=== PATIENT | female | born 1980 | race Caucasian/White ===

== ENCOUNTER 2018-05-24 13:31 | Outpatient (CLI) | payer OTHER | END 2018-05-24 14:03 | disposition home or self-care (01) | LOC: SONOGRAMA 13:31 | DX: O02.1 Missed abortion (principal) ==

== ENCOUNTER 2018-05-27 07:54 | Day surgery (SDC) | payer OTHER ==
[~2018-05-27] VITALS: Ht 149.9 cm; Wt 51.3 kg
== END 2018-05-28 10:00 | disposition home or self-care (01) ==
LOC: ER 07:54 → CIR.AMB 08:45 → O/R 12:02 → CIR.AMB 12:02 → O/R 15:53 → OB/GYN 15:53 → O/R 05-28 08:40 → CIR.AMB 05-28 10:00
DX: O02.1 Missed abortion (principal); Z3A.08 8 weeks gestation of pregnancy